=== PATIENT | female | born 1990 | race Caucasian/White ===

== ENCOUNTER 2018-12-05 17:49 | Inpatient (IN) | payer OTHER ==
[~2018-12-05] VITALS: Ht 165.1 cm; Wt 81.8 kg
[2018-12-05] MEDS ORDERED: PREN-93 PO (18:08)
--- NOTE | 2018-12-05 18:15 | HP ---
Date/Time of Note Date/Time of Note DATE: 12/05/18 TIME: 18:11 OB - History Hx of Present Free Text/Dictation 27+wks GA with placenta accreta (Based on her own work)and short cervix. care in [place] : 3 Para: 2 Care: Good Care Ultrasounds: Normal mid trimester US, Abnormal US findings Abnormal Ultrasound Findings: Placenta accreta or percreta Obstetrical Complications: None Medical Complications: None Past Family/Social History * Past Medical, Surgical, Family and Obstetric Histories reviewed from chart. OB Admission Exam Physical Exam Abdomen: WNL Membranes: Intact Heart Rate: 140's Accelerations: Accelerations Present Decelerations: No Decelerations Varibility: Moderate Contractions on Admission: < 5 Minutes Apart OB Assessment/Plan Reason for admission: observation Plan: Expectant Management Other plan: Mg Steroid Perinatology consult 4 units PRBC on hold Neonatology consult Continuous monitoring Patient will be signed out at 7 pm to the next laborist,TORI Carias M.D. Dec 05, 2018 18:15
--- NOTE | 2018-12-05 18:31 | TRIAGE ---
OB Triage Datetime Report Generated by CPN: 12/05/2018 18:31 Datetime: 12/05/2018 18:05 Maternal Assessment Level of Consciousness: Fully Conscious DTR's/Clonus: DTRs 1+ Headache: Denies Blurred Vision: No Respiratory Effort: Unlabored Breath Sounds, Left: Clear and Equal Breath Sounds, Right: Clear and Equal Nausea/Vomiting: Denies RUQ Epigastric Pain: Denies Facial Edema: None Labor Evaluation Frequency: 1-2 Monitor Mode: External Duration (sec)2399: 60-110 Quality: Mild Pattern: Normal: <= 5 Contractions in 10 Minutes Resting Tone [place]: Relaxed Heart Rate FHR Baseline Rate: 135 Monitor Mode: External US Variability: Moderate 6-25 bpm Accelerations: 15X15 Decelerations: None Category: Category I Pain Assessment Pain Scale: 0 Pain Presence: None/Denies Pain Type: N/A Pain Goal: 3 Pain Assessment Comments: PT DENIES FEELING PAIN RIGHT NOW Vaginal Exam Membrane Status: Intact Datetime: 12/05/2018 17:57 Assessment Type: Triage Maternal Assessment Level of Consciousness: Fully Conscious DTR's/Clonus: DTRs 2+; No Clonus Headache: Denies Blurred Vision: No Respiratory Effort: Unlabored; Regular Rhythm; Equal Expansion Breath Sounds, Left: Clear and Equal Breath Sounds, Right: Clear and Equal Nausea/Vomiting: Denies RUQ Epigastric Pain: Denies Lower Extremities Edema: None Degree: None Upper Extremities Edema: None Degree: None Facial Edema: None Fall Risk Assessment History of Falling: (0) No Secondary Diagnosis: (0) No Ambulatory Aid: (0) Bedrest/Nurse Assist IV Therapy: (0) No Gait: (0) Normal/Bedrest/Immobile Mental Status: (0) Oriented to Own Ability Fall Score: 0 Fall Risk Score Definition: No Risk: No action required Datetime: 12/05/2018 17:56 EGA: 28.4 Datetime: 12/05/2018 17:53 Time of Arrival: 12/05/2018 17:53 Arrived By: Ambulance Arrived From: Home Chief Complaint: PT CAME IN VIA AMBULANCE C/O BLEEDING AND SOME CRAMPING. PT STATES THAT SHE WENT T O THE RESTROOM AND SAW BLOOD IN THE BATHROOM AND DENIES SEEING BLOOD CLOTS. PT STATES THAT SHE HAS PL ACENTA ACCREDITTA AND SHORT CERVIX WITH THIS . Movement: Decreased Contractions: Denies/Absent Rupture of Membranes: Denies Vaginal Discharge: Denies Recent Sexual Intercouse: Denies Abdominal Trauma: Not Applicable Additional Patient Complaints: NONE Time Provider Notified: 12/05/2018 17:56 Provider Notified: MICH
[2018-12-05] MEDS: LACTATED RINGER'S 1,000 ML IV SCH ×2 (18:45→21:43)
[2018-12-05] MEDS ORDERED: MAGNESIUM SULFATE 4 GM/100 ML 100 ML IV ONE (19:00)
[2018-12-05] MEDS: MAGNESIUM SULFATE 20 GM/500 ML 500 ML IV SCH (19:21)
[2018-12-05] MEDS ORDERED: BETAMET NA PHOS/AC(6 MG/ML) 2 ML INJ SYG IM SCH (20:00)
[2018-12-06] MEDS: MAGNESIUM SULFATE 20 GM/500 ML 500 ML IV SCH ×2 (05:36→13:57)
[2018-12-06 08:18] VITALS: Ht 165.1 cm; Wt 81.8 kg
[2018-12-06 08:19] VITALS: BP 117/61; PULSE 90; RESP 20
[2018-12-06] MEDS ORDERED: GENTAMICIN 80 MG/NS (PMX) 50 ML IVPB ONE (09:00)
[2018-12-06] MEDS: BUTORPHANOL 2 MG INJ IV ONE ×2 (09:18→12:34)
--- NOTE | 2018-12-06 09:19 | QN ---
Documentation Comment 28+wks GA Suspected Placenta percreta or accreta No VB Irregular CTX NST reassuring [place] No Ctxs Pelvic deferred No VB at perineum --->Continue Mg --->Second dose of steroid --->Retrieve the records from [place] --->Perinatology consult TORI EPPS M.D. Dec 06, 2018 09:19
[2018-12-06] MEDS: LACTATED RINGER'S 1,000 ML IV SCH (11:20)
--- NOTE | 2018-12-06 11:41 | QN ---
Documentation Comment Case D/w with Dr.Nicole Tate Her office [phone] patient is a case of Complete Previa and Percreta.The plan of care is to transfer the patient at some point to [facility] . The above information D/w Charged Nurse ,Kira is informed about the possible transfer and she is going to discuss that with case management TORI EPPS M.D. Dec 06, 2018 11:41
--- NOTE | 2018-12-06 12:19 | QN ---
Documentation Comment The case is discussed with ,Perinatologist and ,senior mechanical project engineer The case is currently stable and has No Vaginal bleeding at this time and no blood at perineum,Vs stable Last CXL 1.8 cm NSt reassuring Laverne is not picking up and Ctxs but she feels cramps Currently she is on 2.5 g/hr magnesium and her and Mg level is around 5 As this is the matter of patient's safety and the patient needs multidisciplinary management and also as a community hospital we are not able to safely manage the patient in our center,patient is getting transferred to [facility] RAMIN M.D. Dec 06, 2018 12:19
--- NOTE | 2018-12-06 13:58 | CONS ---
DATE OF ADMISSION: 12/05/2018 DATE OF CONSULTATION: 12/06/2018 HISTORY OF PRESENT ILLNESS: The patient is at 28 weeks and 5 days with a confirmed diagnosis of ____ _ diagnosed at [facility], where she has her care. Yesterday afternoon, she had some bleeding a nd the ambulance brought her to the [facility]. Ever since she has not had any bleeding. S he was started on magnesium sulfate, currently on 2.5 grams every hour. Given the rescue dose of bet amethasone hemoglobin is we do believe is 11.3. Vital signs are stable. heart tone is reassur ing for gestational age. On the monitor, we cannot see any contractions; however, patient states toby t she has contractions frequently but overall she is comfortable and does not seem to be in too much pain or at all. She was offered even Stadol earlier this morning. The patient is stable and heart tone is reassuring and has not had any bleeding and also given the hospital to be a private hospital and there are no urogynecologist/oncologist available immediate ly. The decision was made for the patient to be transferred to [facility]. There is an accepting phy sician at [facility] and also after speaking to the LABORATORY MECHANICAL TECHNICIAN, who is injection molding operator today and overall, if they are not comfortable doing the surgery that she does need in case of need for delivery. Therefore, fo r the best patient care, the patient will be transferred to the [facility]. A physician OB/G YN will accompany the patient in the ambulance to [facility] and I spoke to the patient with Dr. Petty barrett who is the laborist today and answered any questions she had. Dictated By: JOBY AGUSTIN MD ST/NTS Conf#: [id number] DID#: [id number] CC: TORI EPPS MD;*EndCC*
== END 2018-12-06 16:10 | disposition other institution (70) | DRG 776 ==
LOC: OBT 17:49 → L-D 17:51 → OBT 18:05 → L-D 20:49
PROVIDERS: ADMIT Obstetrics & Gynecology; ATTEND Obstetrics & Gynecology
DX: O43.212 Placenta accreta, second trimester (principal); O26.872 Cervical shortening, second trimester; Z3A.27 27 weeks gestation of pregnancy
CPT/HCPCS: 76815; 80053; 81003; 83735; 85025; 85610; 85730; 86592; 86850; 86900; 86901; 86920; 87086; G0463; J0595; J0702; J1580; J3475; J7120